=== PATIENT | male | born 1955 | race Caucasian/White ===

== ENCOUNTER → 2018-08-06 | Emergency (ER) | payer MEDICARE, BC ==
[~2018-08-06] VITALS: Ht 190.5 cm; Wt 123.1 kg
[~2018-08-06] MED LIST: HYDR-3965 PO; HYDROcodone/acetaminophen 5mg/325mg tablet PO ONE; acetaminophen 325mg tablet PO ONE; ondansetron 4mg rapidly disintigrating tab PO ONE
[2018-08-06 11:56] VITALS: BP 122/68
== END | disposition home or self-care (01) ==
LOC: ER 11:41
DX: M16.11 Unilateral primary osteoarthritis, right hip (principal); Z88.2 Allergy status to sulfonamides; Z79.899 Other long term (current) drug therapy
CPT/HCPCS: 72170; 99284

== ENCOUNTER 2020-07-03 20:15 | Inpatient (IN) | payer MEDICARE, BC ==
[~2020-07-03] VITALS: Ht 190.5 cm; Wt 118.0 kg
[2020-07-03] MEDS ORDERED: dextrose 50%-water 50ml dispensing syringe IV ONE ×2 (20:30→21:12)
--- NOTE | 2020-07-03 20:31 | NUR ---
D50 OVERRIDE USED SECONDARY TO BLOOD SUGAR OF 36 - MD JAMA AWARE
[2020-07-03] MEDS ORDERED: Dextrose 10%-water IV solution 1,000 ML IV ONE (20:55)
[2020-07-03 21:06] LABS: BASOPHILS # (AUTO) 0.1 X10'3 (0-0.2); BASOPHILS % (AUTO) 0.5 % (0-1); EOSINOPHILS # (AUTO) 0.7 X10'3 (0-0.9); EOSINOPHILS % (AUTO) 4.9 % (0-6); HEMATOCRIT 41.6 % (42.0-52.0); HEMOGLOBIN 13.6 g/dl (14.0-17.9); LYMPHOCYTES # (AUTO) 1.8 X10'3 (1.1-4.8); LYMPHOCYTES % (AUTO) 12.9 % (21-51); MEAN CORPUSCULAR HEMOGLOBIN 32.5 PG (27.0-31.0); MEAN CORPUSCULAR HGB CONC 32.6 g/dL (33.0-36.5); MEAN CORPUSCULAR VOLUME 99.7 FL (78-98); MEAN PLATELET VOLUME 8.4 FL (7.4-10.4); MONOCYTES % (AUTO) 7.2 % (2-12); NEUTROPHILS # (AUTO) 10.3 X10'3 (1.8-7.7); NEUTROPHILS % (AUTO) 74.5 % (42-75); PLATELET COUNT 209 X10'3 (140-440); RED BLOOD COUNT 4.17 X10'6 (4.70-6.10); RED CELL DISTRIBUTION WIDTH 16.1 % (11.5-14.5); WHITE BLOOD COUNT 13.8 X10'3 (4.5-11.0)
[2020-07-03 21:23] LABS: ALANINE AMINOTRANSFERASE 27 U/L (12-78); ALBUMIN 3.9 G/DL (3.4-5.0); ALBUMIN/GLOBULIN RATIO 1.1 (1.1-1.5); ALKALINE PHOSPHATASE 106 IU/L (46-116); ANION GAP 12 (8-16); ASPARTATE AMINO TRANSFERASE 28 U/L (10-37); BILIRUBIN,TOTAL 0.2 MG/DL (0.1-1.0); BLOOD UREA NITROGEN 27 MG/DL (7-18); BUN/CREATININE RATIO 18.6 (5.4-32.0); CALCIUM 8.8 MG/DL (8.5-10.1); CHLORIDE 109 MMOL/L (99-107); CREATININE 1.45 MG/DL (0.60-1.10); ETHANOL 0.126 GM/DL (0.0-0.010); MAGNESIUM 2.2 MG/DL (1.5-2.4); SODIUM 146 MMOL/L (135-145); TOTAL CARBON DIOXIDE 25.3 MMOL/L (24-32); TOTAL PROTEIN 7.4 G/DL (6.4-8.2); eGFR 49 ML/MIN
[2020-07-03 21:26] LABS: GLUCOSE 42 MG/DL (70-104); POTASSIUM 2.9 MMOL/L (3.5-5.1)
[2020-07-03] MEDS ORDERED: potassium 10mEq/100ml NS w/LIDOcaine (10mg/bag) IV ONE (21:40)
[2020-07-03] MEDS ORDERED: potassium Cl 20 mEq SR tablet PO ONE (21:40)
--- NOTE | 2020-07-03 21:42 | NUR ---
OVER APPROX THE PAST HOUR PT HAS EATEN A TURKEY SANDWICH, 2 MILKS, 2 APPLE JUICES, STRING CHEESE, APPLE SAUCE, YOGURT AND PUMPKIN PIE. PT HAS REMAINED ALERT AND ABLE TO SWALLOW WITHOUT DIFFICULTY.
[2020-07-03] MEDS ORDERED: potassium Cl 10 mEq/100mL bag IV ONE (21:45)
[2020-07-03] MEDS ORDERED: GABA300C PO (22:09)
[2020-07-03] MEDS ORDERED: INSU100I29 SQ (22:09)
[2020-07-03] MEDS ORDERED: LANS30CA56 PO (22:09)
[2020-07-03] MEDS ORDERED: PIOG30TA71 PO (22:09)
[2020-07-03] MEDS ORDERED: ATOR20TA66 PO (22:09)
[2020-07-03] MEDS ORDERED: METO25TA6 PO (22:09)
[2020-07-03] MEDS ORDERED: HYDR-3972 PO (22:09)
[2020-07-03] MEDS ORDERED: LIRA0.6P2 SUBCUT (22:09)
[2020-07-03] MEDS ORDERED: GLIM4TAB7 PO (22:09)
[2020-07-03] MEDS ORDERED: ENAL20TA36 PO (22:09)
--- NOTE | 2020-07-03 22:22 | NUR ---
DR. DUARTE AT BEDSIDE FOR ADMISSION. VERBAL ORDER GIVEN TO INCREASE D10 DRIP TO 150ML/HR -
[2020-07-03] MEDS ORDERED: magnesium hydroxide 30ml (MOM) UD suspension PO PRN (22:30)
[2020-07-03] MEDS ORDERED: mag hydrox/Alum hydrox/simeth 30ml oral suspension PO PRN (22:30)
[2020-07-03] MEDS ORDERED: potassium CL 10mEq/100ml bag 100 ML IV PRN ×2 (22:30)
[2020-07-03] MEDS ORDERED: potassium Cl 20 mEq SR tablet PO PRN ×2 (22:30)
[2020-07-03] MEDS ORDERED: acetaminophen 325mg tablet PO PRN (22:30)
[2020-07-03] MEDS ORDERED: ondansetron/PF 4mg/2ml inj IV PRN (22:30)
[2020-07-03] MEDS ORDERED: LORazepam 2 mg/ml vial IV PRN (22:35)
[2020-07-03] MEDS ORDERED: thiamine inj. 100 MG in normal saline 100ml IV soln 100 ML IV ONE (22:35)
[2020-07-03] MEDS ORDERED: thiamine 100mg/ml 2ml inj. IV ONE (22:40)
[2020-07-03] MEDS: DEXTROSE 10 % AND 0.45 % NACL 1,000 ML IV SCH (23:05)
[2020-07-04 00:04] VITALS: BP 155/82
[2020-07-04] MEDS: DEXTROSE 10 % AND 0.45 % NACL 1,000 ML IV SCH (00:26)
[2020-07-04] MEDS: gabapentin 300mg capsule PO SCH ×4 (00:28→23:09)
[2020-07-04 06:00] VITALS: BP 145/58
[2020-07-04 06:03] LABS: BASOPHILS % (AUTO) 0.7 % (0-1); EOSINOPHILS # (AUTO) 0.3 X10'3 (0-0.9); EOSINOPHILS % (AUTO) 4.6 % (0-6); HEMATOCRIT 36.7 % (42.0-52.0); HEMOGLOBIN 12.1 g/dl (14.0-17.9); LYMPHOCYTES # (AUTO) 1.4 X10'3 (1.1-4.8); LYMPHOCYTES % (AUTO) 20.6 % (21-51); MEAN CORPUSCULAR HEMOGLOBIN 32.9 PG (27.0-31.0); MEAN CORPUSCULAR VOLUME 99.7 FL (78-98); MEAN PLATELET VOLUME 8.6 FL (7.4-10.4); MONOCYTES # (AUTO) 0.6 X10'3 (0-0.9); MONOCYTES % (AUTO) 9.3 % (2-12); NEUTROPHILS # (AUTO) 4.5 X10'3 (1.8-7.7); NEUTROPHILS % (AUTO) 64.8 % (42-75); PLATELET COUNT 167 X10'3 (140-440); RED BLOOD COUNT 3.68 X10'6 (4.70-6.10); RED CELL DISTRIBUTION WIDTH 15.9 % (11.5-14.5); WHITE BLOOD COUNT 6.9 X10'3 (4.5-11.0)
[2020-07-04 06:22] LABS: ALANINE AMINOTRANSFERASE 24 U/L (12-78); ALBUMIN 3.1 G/DL (3.4-5.0); ALKALINE PHOSPHATASE 97 IU/L (46-116); ANION GAP 6 (8-16); ASPARTATE AMINO TRANSFERASE 20 U/L (10-37); BILIRUBIN,TOTAL 0.2 MG/DL (0.1-1.0); BLOOD UREA NITROGEN 30 MG/DL (7-18); BUN/CREATININE RATIO 20.4 (5.4-32.0); CALCIUM 8.5 MG/DL (8.5-10.1); CHLORIDE 107 MMOL/L (99-107); CREATININE 1.47 MG/DL (0.60-1.10); GLUCOSE 188 MG/DL (70-104); LIPASE < 50 U/L (73-393); SODIUM 140 MMOL/L (135-145); TOTAL CARBON DIOXIDE 27.5 MMOL/L (24-32); TOTAL PROTEIN 6.2 G/DL (6.4-8.2); eGFR 48 ML/MIN
[2020-07-04 06:40] LABS: HEMOGLOBIN A1C 6.2 % (4.5-6.2)
[2020-07-04] MEDS: atorvastatin 20mg tablet PO SCH (07:45)
[2020-07-04] MEDS: HYDROcodone/acetaminophen 10/325mg tab PO SCH ×2 (07:46→21:09)
[2020-07-04] MEDS: metoprolol tartrate 12.5mg (1/2 tablet) PO SCH ×2 (07:54→21:14)
[2020-07-04] MEDS: lisinopril 20mg tablet PO SCH ×2 (07:54→21:14)
[2020-07-04] MEDS: heparin, porcine 5000 units/ml vial SQ SCH ×2 (07:55→21:19)
[2020-07-04] MEDS: K and/or MAG REPLACEMENT MC SCH ×3 (08:00→19:31)
--- NOTE | 2020-07-04 09:00 | NUR ---
DM consult: Pt with A1c 6.2%, DM education not warranted at this time. Will continue to follow. Addendum: 07/04/20 at [address] Amended: Links added.
[2020-07-04 11:00] VITALS: BP 181/87
[2020-07-04] MEDS ORDERED: magnesium 4gm in 100ml NS 100 ML IV PRN (11:15)
[2020-07-04] MEDS ORDERED: magnesium Cl slow-release 64mg tablet PO PRN (11:15)
[2020-07-04] MEDS ORDERED: pantoprazole 40 MG vial IV ONE (11:15)
--- NOTE | 2020-07-04 11:23 | NUR ---
Spoke with patient's Kerri to give an update. Transferred her in to speak with patient.
--- NOTE | 2020-07-04 12:12 | NUR ---
PAGER ID: [phone] MESSAGE: [id number] Jw Obie- Do you still want D10 1/2ns running, blood sugar increased. Also, did you still want q1 hr. blood sugar checks? Juany [phone]
[2020-07-04] MEDS ORDERED: dextrose 50%-water 50ml dispensing syringe IV PRN ×2 (12:55)
[2020-07-04] MEDS ORDERED: dextrose ORAL solution 15 GM/59 ML bottle PO PRN ×2 (12:55)
[2020-07-04] MEDS ORDERED: glucagon, human recombinant 1mg kit SUBCUT PRN (12:55)
[2020-07-04] MEDS ORDERED: insulin Lispro (HumaLOG) vial - multi-dose SQ SCH (12:55)
[2020-07-04] MEDS ORDERED: MESSAGE TO PHARMACY PO ONE (12:55)
[2020-07-04] MEDS: normal saline 1000ml 1,000 ML IV SCH ×2 (13:04→22:12)
[2020-07-04 15:00] VITALS: BP 153/78
--- NOTE | 2020-07-04 18:19 | NUR ---
Problems reprioritized. Patient report given, questions answered & plan of care reviewed with Jeri LOPEZ.
[2020-07-04 19:00] VITALS: BP 173/81
[2020-07-04] MEDS ORDERED: insulin glargine (Lantus) pen - multi-dose SQ SCH (21:00)
[2020-07-04] MEDS ORDERED: folic acid 1mg tablet PO ONE (22:50)
[2020-07-04] MEDS ORDERED: thiamine 100mg tablet PO ONE (22:50)
[2020-07-04 23:00] VITALS: BP 167/87
[2020-07-05 06:00] LABS: BASOPHILS # (AUTO) 0.1 X10'3 (0-0.2); BASOPHILS % (AUTO) 0.9 % (0-1); EOSINOPHILS # (AUTO) 0.5 X10'3 (0-0.9); EOSINOPHILS % (AUTO) 7.7 % (0-6); HEMATOCRIT 37.4 % (42.0-52.0); HEMOGLOBIN 12.2 g/dl (14.0-17.9); LYMPHOCYTES # (AUTO) 1.5 X10'3 (1.1-4.8); LYMPHOCYTES % (AUTO) 24.3 % (21-51); MEAN CORPUSCULAR HEMOGLOBIN 32.7 PG (27.0-31.0); MEAN CORPUSCULAR HGB CONC 32.6 g/dL (33.0-36.5); MEAN CORPUSCULAR VOLUME 100.3 FL (78-98); MEAN PLATELET VOLUME 8.6 FL (7.4-10.4); MONOCYTES # (AUTO) 0.6 X10'3 (0-0.9); MONOCYTES % (AUTO) 9.6 % (2-12); NEUTROPHILS # (AUTO) 3.5 X10'3 (1.8-7.7); NEUTROPHILS % (AUTO) 57.5 % (42-75); PLATELET COUNT 151 X10'3 (140-440); RED BLOOD COUNT 3.73 X10'6 (4.70-6.10); RED CELL DISTRIBUTION WIDTH 15.6 % (11.5-14.5); WHITE BLOOD COUNT 6.1 X10'3 (4.5-11.0)
--- NOTE | 2020-07-05 06:17 | NUR ---
Problems reprioritized. Patient report given, questions answered & plan of care reviewed with Kulwinder RN.
[2020-07-05 06:24] LABS: ALANINE AMINOTRANSFERASE 20 U/L (12-78); ALBUMIN/GLOBULIN RATIO 0.9 (1.1-1.5); ALKALINE PHOSPHATASE 87 IU/L (46-116); ANION GAP 7 (8-16); ASPARTATE AMINO TRANSFERASE 17 U/L (10-37); BILIRUBIN,TOTAL 0.3 MG/DL (0.1-1.0); BLOOD UREA NITROGEN 19 MG/DL (7-18); BUN/CREATININE RATIO 15.7 (5.4-32.0); CALCIUM 8.9 MG/DL (8.5-10.1); CHLORIDE 108 MMOL/L (99-107); CREATININE 1.21 MG/DL (0.60-1.10); GLUCOSE 144 MG/DL (70-104); LIPASE 60 U/L (73-393); MAGNESIUM 1.7 MG/DL (1.5-2.4); PHOSPHORUS 3.2 MG/DL (2.3-4.5); POTASSIUM 4.3 MMOL/L (3.5-5.1); SODIUM 142 MMOL/L (135-145); TOTAL CARBON DIOXIDE 26.9 MMOL/L (24-32); TOTAL PROTEIN 6.3 G/DL (6.4-8.2); eGFR 60 ML/MIN
--- NOTE | 2020-07-05 06:30 | NUR ---
Patient in room PCU 3018. I have received report from Jeri LOPEZ and had the opportunity to ask questions and assume patient care.
--- NOTE | 2020-07-05 06:30 | NUR ---
Patient in room PCU 3018. I have received report from Enrike LOPEZ and had the opportunity to ask questions and assume patient care.
[2020-07-05 07:13] VITALS: BP 137/89
[2020-07-05] MEDS ORDERED: thiamine 100mg tablet PO SCH (08:00)
[2020-07-05] MEDS ORDERED: multivitamins, therapeutics tablet PO SCH (08:00)
[2020-07-05] MEDS ORDERED: pantoprazole 40 MG vial IV SCH (08:00)
[2020-07-05] MEDS: K and/or MAG REPLACEMENT MC SCH (08:00)
[2020-07-05] MEDS ORDERED: folic acid 1mg tablet PO SCH (08:00)
[2020-07-05] MEDS: atorvastatin 20mg tablet PO SCH (08:37)
[2020-07-05] MEDS: metoprolol tartrate 12.5mg (1/2 tablet) PO SCH (08:37)
[2020-07-05] MEDS: gabapentin 300mg capsule PO SCH (08:38)
[2020-07-05] MEDS: HYDROcodone/acetaminophen 10/325mg tab PO SCH (08:39)
[2020-07-05] MEDS: normal saline 1000ml 1,000 ML IV SCH (08:40)
[2020-07-05] MEDS: heparin, porcine 5000 units/ml vial SQ SCH (08:41)
[2020-07-05] MEDS ORDERED: MULT-25 PO (10:38)
[2020-07-05] MEDS ORDERED: METF-950 PO (10:38)
[2020-07-05] MEDS ORDERED: THIA50TA10 PO (10:38)
[2020-07-05] MEDS ORDERED: FOLI0.4T14 PO (10:38)
[2020-07-05 11:00] VITALS: BP 177/90
--- NOTE | 2020-07-05 14:00 | NUR ---
Patient discharged by resource nurse and iv taken out at this time
[2020-07-05] MEDS ORDERED: LORazepam 1 MG tablet PO PRN (22:35)
[2020-07-05] MEDS ORDERED: LORazepam 2 mg/ml vial IV PRN (22:35)
[2020-07-07] MEDS ORDERED: LORazepam 1 MG tablet PO PRN (22:35)
== END 2020-07-05 13:01 | disposition home or self-care (01) | DRG 897 ==
LOC: ER 20:16 → ED HOLD 22:28 → PCU 3S 23:59
PROVIDERS: ADMIT Internal Medicine; ATTEND Family Medicine
DX: F10.229 Alcohol dependence with intoxication, unspecified (principal); E11.649 Type 2 diabetes mellitus with hypoglycemia without coma; E87.6 Hypokalemia; R55 Syncope and collapse; I10 Essential (primary) hypertension; E78.5 Hyperlipidemia, unspecified; K21.9 Gastro-esophageal reflux disease without esophagitis; I48.91 Unspecified atrial fibrillation; Z87.442 Personal history of urinary calculi; Z88.2 Allergy status to sulfonamides; Z88.8 Allergy status to other drugs, medicaments and biological substances; Z79.899 Other long term (current) drug therapy; Z79.4 Long term (current) use of insulin; Z71.41 Alcohol abuse counseling and surveillance of alcoholic; Y92.89 Other specified places as the place of occurrence of the external cause
CPT/HCPCS: 36415; 71045; 80053; 80320; 82948; 83036; 83605; 83690; 83735; 84100; 84145; 85025; 87081; 93005; 96365; 99291; C9113; G0378; J1644; J1815; J3411; J3480; J7030

== ENCOUNTER 2025-06-11 11:19 | Day surgery (SDC) | payer MEDICARE, OTHER ==
[2025-06-07 13:42] LABS: MEAN PLATELET VOLUME 8.4 FL (7.4-10.4); RED CELL DISTRIBUTION WIDTH 14.7 % (11.5-14.5)
[2025-06-07 13:49] LABS: APTT 28 SECONDS (22-32); INR 1.0 INR
[2025-06-07 13:51] LABS: CHOL/HDL RATIO 2.1 (0.00-4.99); CREATININE 1.57 MG/DL (0.60-1.10); LDL CHOLESTEROL 40 MG/DL (50-100); TOTAL CARBON DIOXIDE 27.8 MMOL/L (24-32); eGFR 44 ML/MIN
[~2025-06-11] VITALS: Ht 190.5 cm; Wt 127.8 kg
[2025-06-11] VITALS (9 sets, daily range): BP systolic 123–153; BP diastolic 69–85; PULSE 79–98; RESP 13–15; TEMP 98.3; O2SAT 91–98
[~2025-06-11 11:19] MED LIST changes: +ATOR20TA66 PO; +ENAL20TA36 PO; +GABA300C PO; -HYDR-3965 PO; +HYDR-3972 PO; -HYDROcodone/acetaminophen 5mg/325mg tablet PO ONE; +LANS30CA56 PO; +LIRA0.6P2 SUBCUT; +LOP25T PO; +PIOG30TA71 PO; -acetaminophen 325mg tablet PO ONE; -ondansetron 4mg rapidly disintigrating tab PO ONE
--- NOTE | 2025-06-11 11:50 | ELECTROCARDIOGRAPH REPORT ---
[facility] Test Date: 2025-06-11 Test Time: 12:45:39 Pat Name: ROBERT SHINE Department: [facility] Patient ID: [id number] Room: Gender: M Help Aid: RYAN : 1955 Requested By: KT QURESHI Order Number: [id number] Reading MD: Dr. SAROJ Hoskins Measurements Intervals [place] Rate: 98 P: 47 NE: 175 QRS: 5 QRSD: 138 T: 17 QT: 367 QTc: 469 Interpretive Statements Sinus tachycardia Ventricular premature complex Right bundle branch block Electronically Signed On 06-11-2025 13:22:[address] SAROJ Hoskins Please click the below link to view image of tracing.
[2025-06-11] MEDS ORDERED: METO25TA6 PO (12:12)
[2025-06-11] MEDS ORDERED: HYDR-3964 PO (12:17)
[2025-06-11] MEDS ORDERED: INSU3INS2 SQ (12:17)
[2025-06-11] MEDS ORDERED: GLIM4TAB7 PO (12:17)
[2025-06-11] MEDS ORDERED: PANT40TA54 PO (12:17)
[2025-06-11] MEDS ORDERED: EMPA25TA PO (12:17)
[2025-06-11] MEDS ORDERED: ROSU40TA89 PO (12:17)
[2025-06-11] MEDS ORDERED: EZET10TA80 PO (12:17)
[2025-06-11] MEDS ORDERED: NITR0.4T48 SL (12:19)
[2025-06-11] MEDS ORDERED: midazolam 1 mg/ML 2ml injection ONE ×2 (12:44→13:56)
[2025-06-11] MEDS ORDERED: LIDOcaine 1% (10mg/ml) 2ml vial ONE (12:44)
[2025-06-11] MEDS ORDERED: verapamil 2.5 mg/ml inj IV ONE (12:44)
[2025-06-11] MEDS ORDERED: heparin 1,000unit/ml 10ml vial 0 ML ONE (12:45)
[2025-06-11] MEDS ORDERED: fentaNYL/PF 50MCG/1 ML 2ML syringe ONE (12:45)
[2025-06-11] MEDS ORDERED: LIDOcaine 1% 30ml preserv. free vial ONE (13:48)
[2025-06-11] MEDS ORDERED: OXAZEpam 15mg capsule PO PRN (15:10)
[2025-06-11] MEDS ORDERED: ondansetron/PF 4mg/2ml inj IV PRN (15:10)
[2025-06-11] MEDS ORDERED: HYDROcodone/acetaminophen 5mg/325mg tablet PO PRN (15:10)
[2025-06-11] MEDS ORDERED: HYDROcodone/acetaminophen 10/325mg tab PO PRN (15:10)
--- NOTE | 2025-06-30 07:55 | CARDIOLOGY REPORT ---
DATE OF SERVICE: 06/11/2025 DICTATING PHYSICIAN: Dale Ruiz MD CARDIAC CATHETERIZATION REPORT DATE OF STUDY: 06/11/2025 PROCEDURES: 1. Selective coronary angiography. 2. Conscious sedation monitoring time for 15 minutes. INDICATION: High-grade stenosis; scheduled for PCI. PHYSICIAN: Dale Ruiz MD DESCRIPTION OF PROCEDURE: After informed consent was obtained, the patient was brought to the lab where he was prepped and draped in the usual sterile fashion. A 6-Barb[place] sheath was inserted into the right femoral artery. Thereafter, using a JR4 guide, the catheter was advanced over a 0.035 wire and the right coronary artery intubated. Selective angiography performed. Hemostasis was obtained using the Perclose device. HEMODYNAMICS: For the patient's hemodynamics, please refer to the event log. FINDINGS: The right coronary artery is a large dominant vessel with a 20% proximal stenosis. The mid vessel has a 40-50% stenosis. No high-grade stenosis noted. IMPRESSION: 1. The patient's mid right coronary artery has 40-50% stenosis. 2. No high-grade stenosis was present as previously noted by cardiac catheterization at [facility]. 3. Intervention was not needed. Dlae Ruiz MD TID: [id number] RECEIPT: [id number] VLADIMIR/REMY
== END 2025-06-11 17:30 | disposition home or self-care (01) ==
LOC: SSTAY O 11:19
PROVIDERS: ATTEND Student in an Organized Health Care Education/Training Program
DX: I25.10 Atherosclerotic heart disease of native coronary artery without angina pectoris (principal); I45.10 Unspecified right bundle-branch block; I49.3 Ventricular premature depolarization; E11.9 Type 2 diabetes mellitus without complications; E78.00 Pure hypercholesterolemia, unspecified; I10 Essential (primary) hypertension; I25.2 Old myocardial infarction; Z82.49 Family history of ischemic heart disease and other diseases of the circulatory system; Z79.01 Long term (current) use of anticoagulants
CPT/HCPCS: 36415; 80048; 80061; 85025; 85610; 85730; 93005; 93454; 99152; A6258; C1751; C1769; C1894; J1644; J2003; J2250; J3010; J7030; Q0163; Q9967; Z7610; 99153; J3490